=== PATIENT | female | born 1945 | race Caucasian/White ===

== ENCOUNTER 2018-06-12 17:43 | Emergency (ER) | payer MEDICARE ==
[2018-06-12] MEDS ORDERED: ATORVASTATIN CA40 MG PO (18:09)
[2018-06-12] MEDS ORDERED: LISINOPRIL5 MG PO (18:10)
[2018-06-12] MEDS ORDERED: FLUOXETINE HCL20 MG PO (18:10)
[2018-06-12] MEDS ORDERED: MONTELUKAST SOD10 MG PO (18:10)
[2018-06-12] MEDS ORDERED: CELECOXIB200 MG PO (18:11)
[2018-06-12] MEDS ORDERED: METFORMIN500 M2 PO (18:11)
[2018-06-12] MEDS ORDERED: METHOTREXATE2.5 MG PO (18:12)
[2018-06-12] MEDS ORDERED: TRAMADOL HCL50 MG PO (19:20)
[2018-06-12 19:25] VITALS: BP 130/77
[2018-06-12] MEDS ORDERED: FLEXERIL5 M1 PO (19:29)
== END 2018-06-12 19:25 | disposition home or self-care (01) ==
LOC: ED 17:43
DX: S70.01XA Contusion of right hip, initial encounter (principal); E11.9 Type 2 diabetes mellitus without complications; E78.5 Hyperlipidemia, unspecified; M06.9 Rheumatoid arthritis, unspecified; F17.200 Nicotine dependence, unspecified, uncomplicated; W18.30XA Fall on same level, unspecified, initial encounter

== ENCOUNTER 2019-05-18 | Day surgery (SDC) | payer MEDICARE ==
[~2019-05-18] MED LIST: ATORVASTATIN CA40 MG PO; BUSPIRONE5 MG PO; CELECOXIB200 MG PO; FLEXERIL5 M1 PO; FLUOXETINE HCL20 MG PO; FOLIC ACID1 M1 PO; LISINOPRIL5 MG PO; METFORMIN500 M2 PO; METHOTREXATE2.5 MG PO; MONTELUKAST SOD10 MG PO; TRAMADOL HCL50 MG PO
[2019-10-26] MEDS ORDERED: HYDROCO/APAP1 T13 PO (10:38)
[2019-10-26] MEDS ORDERED: BEET ROOT PO (10:39)
[2019-10-26] MEDS ORDERED: NIACIN PO (10:40)
[2019-10-26] MEDS ORDERED: VITAMIN B-12500 MCG PO (10:40)
[2019-10-26] MEDS ORDERED: ZYRTEC10 MG PO (10:40)
[2019-10-26] MEDS ORDERED: FLEXERIL5 MG PO (10:40)
== END 2019-05-18 09:25 | disposition home or self-care (01) ==
DX: M70.71 Other bursitis of hip, right hip (principal); M76.31 Iliotibial band syndrome, right leg

== ENCOUNTER 2019-09-06 | Emergency (ER) | payer MEDICARE ==
[2019-09-06 09:46] LABS: HEMATOCRIT 38.6 % (37.0-47.0); HEMOGLOBIN 12.6 g/dl (12.0-16.0); IMMATURE GRANULOCYTES 0.6 % (0.0-5.0); MEAN CORPUSCULAR HGB 32.3 pG CALC (26.0-32.0); MEAN CORPUSCULAR HGB CONC 32.6 g/dL CAL (32.0-36.0); NEUT# 6.11 thou/uL (2.00-7.15); RED BLOOD COUNT 3.9 mill/uL (4.20-5.60); RED CELL DISTRI WIDTH 15.6 % (11.5-15.5)
[2019-09-06 10:06] LABS: ALKALINE PHOSPHATASE 101 u/l (38-126); ANION GAP 16 (6-22 (CALC)); BILIRUBIN, TOTAL 0.6 mg/dL (0.0-1.4); BUN 15 mg/dL (8-23); BUN/CREATININE RATIO 12 (12-20 (CALC)); CARBON DIOXIDE 19 mmol/l (22-30); CHLORIDE 106 mmol/l (95-108); CREATININE 1.3 mg/dL (0.5-1.0); GFR 40 ML/MIN (>=60 (CALC)); GFR FOR AFR.AMER. 49 ML/MIN (>=60 (CALC)); SGOT/AST 56 u/l (9-36); SODIUM 138 mmol/l (137-146); TOTAL PROTEIN 6.6 g/dL (6.3-8.2)
[2019-09-06] MEDS ORDERED: PREDNISONE50 MG PO ×2 (10:23)
[2019-10-26] MEDS ORDERED: HYDROCO/APAP1 T13 PO (10:38)
[2019-10-26] MEDS ORDERED: BEET ROOT PO (10:39)
[2019-10-26] MEDS ORDERED: FLEXERIL5 MG PO (10:40)
[2019-10-26] MEDS ORDERED: ZYRTEC10 MG PO (10:40)
[2019-10-26] MEDS ORDERED: VITAMIN B-12500 MCG PO (10:40)
[2019-10-26] MEDS ORDERED: NIACIN PO (10:40)
== END 2019-09-06 11:04 | disposition home or self-care (01) ==
PROVIDERS: Family Medicine
DX: R06.02 Shortness of breath (principal); E11.9 Type 2 diabetes mellitus without complications; F17.200 Nicotine dependence, unspecified, uncomplicated; Z77.098 Contact with and (suspected) exposure to other hazardous, chiefly nonmedicinal, chemicals; Z79.84 Long term (current) use of oral hypoglycemic drugs

== ENCOUNTER 2019-11-02 06:23 | Day surgery (SDC) | payer MEDICARE ==
[~2019-11-02] VITALS: Ht 170.2 cm; Wt 74.8 kg
[~2019-11-02 06:23] MED LIST changes: +BEET ROOT PO; +FLEXERIL5 MG PO; +HYDROCO/APAP1 T13 PO; +NIACIN PO; +PREDNISONE50 MG PO; +VITAMIN B-12500 MCG PO; +ZYRTEC10 MG PO
[2019-11-02 08:17] VITALS: BP 142/65
[2019-11-02] MEDS ORDERED: HYDROCODONE/ACE1 TAB PO ×2 (08:44→08:45)
== END 2019-11-02 08:45 | disposition home or self-care (01) ==
LOC: ORM 06:23
PROVIDERS: ATTEND Anesthesiology Pain Medicine
DX: M70.71 Other bursitis of hip, right hip (principal); M76.31 Iliotibial band syndrome, right leg; Z01.84 Encounter for antibody response examination

== ENCOUNTER 2022-02-25 14:07 | Emergency (ER) | payer MEDICARE ==
[~2022-02-25] VITALS: Ht 170.2 cm; Wt 83.9 kg
[~2022-02-25 14:07] MED LIST changes: +HYDROCODONE/ACE1 TAB PO
[2022-02-25 16:02] VITALS: BP 157/79
[2022-02-25 16:17] LABS: HEMATOCRIT 43.9 % (37.0-47.0); HEMOGLOBIN 14.2 g/dl (12.0-16.0); IMMATURE GRANULOCYTES 0.2 % (0.0-5.0); MEAN CELL VOLUME 103.8 fL CALC (80.0-100.0); MEAN CORPUSCULAR HGB 33.6 pG CALC (26.0-32.0); MEAN CORPUSCULAR HGB CONC 32.3 g/dL CAL (32.0-36.0); NEUT# 7.92 thou/uL (2.00-7.15); RED BLOOD COUNT 4.23 mill/uL (4.20-5.60); RED CELL DISTRI WIDTH 15.5 % (11.5-15.5)
[2022-02-25 16:30] LABS: CREATININE 1.1 mg/dL (0.5-1.0); POTASSIUM 3.7 mmol/l (3.5-5.1); TOTAL PROTEIN 7.3 g/dL (6.3-8.2)
[2022-02-25 16:43] LABS: INTERNATIONAL NORMALIZED RATIO 1.1 RATIO (0.7-1.3); PROTHROMBIN TIME 10.6 SECONDS (9.0-12.5)
[2022-02-25] MEDS ORDERED: XARELTO STARTER1 TAB PO (17:20)
[2022-02-25 17:24] VITALS: BP 157/79
== END 2022-02-25 17:46 | disposition home or self-care (01) ==
LOC: ED 14:07
PROVIDERS: Nurse Practitioner
DX: I82.412 Acute embolism and thrombosis of left femoral vein (principal); E11.9 Type 2 diabetes mellitus without complications; M06.9 Rheumatoid arthritis, unspecified; E78.5 Hyperlipidemia, unspecified; J44.9 Chronic obstructive pulmonary disease, unspecified; F17.200 Nicotine dependence, unspecified, uncomplicated; Z79.84 Long term (current) use of oral hypoglycemic drugs

== ENCOUNTER 2022-05-20 14:28 | Emergency (ER) | payer MEDICARE ==
[2022-05-20] VITALS (9 sets, daily range): BP systolic 101–144; BP diastolic 55–77
[~2022-05-20] VITALS: Ht 170.2 cm; Wt 83.9 kg
[~2022-05-20 14:28] MED LIST changes: +XARELTO STARTER1 TAB PO
[2022-05-20 15:12] LABS: BASO% 0.5 % (0-3); EOS% 4.6 % (0-8); HEMATOCRIT 45.9 % (37.0-47.0); HEMOGLOBIN 14.9 g/dl (12.0-16.0); IMMATURE GRANULOCYTES 0.2 % (0.0-5.0); LYMPH% 26.6 % (15-41); MEAN CELL VOLUME 100.7 fL CALC (80.0-100.0); MEAN CORPUSCULAR HGB 32.7 pG CALC (26.0-32.0); MEAN CORPUSCULAR HGB CONC 32.5 g/dL CAL (32.0-36.0); MONO% 4.9 % (2-13); NEUT# 3.75 thou/uL (2.00-7.15); NEUT% 63.2 % (42-76); RED BLOOD COUNT 4.56 mill/uL (4.20-5.60); RED CELL DISTRI WIDTH 14.9 % (11.5-15.5)
[2022-05-20 15:56] LABS: ALBUMIN 4.2 g/dL (3.2-5.0); ALKALINE PHOSPHATASE 150 u/l (38-126); BUN 16 mg/dL (8-23); BUN/CREATININE RATIO 13 (12-20 (CALC)); CHLORIDE 104 mmol/l (95-108); CREATININE 1.2 mg/dL (0.5-1.0); GFR FOR AFR.AMER. 53 ML/MIN (>=60 (CALC)); GFR OTHER RACES 44 ML/MIN (>=60 (CALC)); SGOT/AST 126 u/l (9-36); SODIUM 139 mmol/l (137-146); TOTAL PROTEIN 7.7 g/dL (6.3-8.2)
[2022-05-20 16:00] LABS: ANION GAP 11 (6-22 (CALC)); BILIRUBIN, TOTAL 1.4 mg/dL (0.0-1.4); CARBON DIOXIDE 28 mmol/l (22-30)
[2022-05-20] MEDS ORDERED: PREDNISONE50 MG PO (16:39)
[2022-05-20] MEDS ORDERED: ZPAK PO (16:39)
[2022-05-20] MEDS ORDERED: ALBUTEROL SUL0.083 % IN (16:39)
[2022-05-20] MEDS ORDERED: NEBULIZER KIT/TUBING PO (16:39)
== END 2022-05-20 16:53 | disposition left against medical advice (07) ==
LOC: ED 14:28
PROVIDERS: Family Medicine
DX: J44.1 Chronic obstructive pulmonary disease with (acute) exacerbation (principal); E11.9 Type 2 diabetes mellitus without complications; M06.9 Rheumatoid arthritis, unspecified; E78.5 Hyperlipidemia, unspecified; F17.200 Nicotine dependence, unspecified, uncomplicated; Z53.29 Procedure and treatment not carried out because of patient's decision for other reasons; Z79.84 Long term (current) use of oral hypoglycemic drugs; Z20.822 Contact with and (suspected) exposure to COVID-19

== ENCOUNTER 2022-05-27 13:05 | Emergency (ER) | payer MEDICARE ==
[~2022-05-27] VITALS: Ht 170.2 cm; Wt 83.9 kg
[~2022-05-27 13:05] MED LIST changes: +ALBUTEROL SUL0.083 % IN; +NEBULIZER KIT/TUBING PO; +ZPAK PO
[2022-05-27] MEDS ORDERED: TRELEGY ELLIPTA1 AER IN (14:27)
[2022-05-27 14:42] LABS: BASO% 0.2 % (0-3); HEMATOCRIT 41.9 % (37.0-47.0); HEMOGLOBIN 13.7 g/dl (12.0-16.0); IMMATURE GRANULOCYTES 0.3 % (0.0-5.0); LYMPH% 15.2 % (15-41); MEAN CELL VOLUME 99.8 fL CALC (80.0-100.0); MEAN CORPUSCULAR HGB 32.6 pG CALC (26.0-32.0); MEAN CORPUSCULAR HGB CONC 32.7 g/dL CAL (32.0-36.0); MONO% 9.2 % (2-13); NEUT# 9.54 thou/uL (2.00-7.15); NEUT% 72.1 % (42-76); RED BLOOD COUNT 4.2 mill/uL (4.20-5.60); RED CELL DISTRI WIDTH 15.2 % (11.5-15.5)
[2022-05-27 15:00] LABS: ALBUMIN 3.6 g/dL (3.2-5.0); ALKALINE PHOSPHATASE 157 u/l (38-126); ANION GAP 11 (6-22 (CALC)); BUN 21 mg/dL (8-23); BUN/CREATININE RATIO 23 (12-20 (CALC)); CARBON DIOXIDE 26 mmol/l (22-30); CHLORIDE 106 mmol/l (95-108); CREATININE 0.9 mg/dL (0.5-1.0); GFR FOR AFR.AMER. > 60 ML/MIN (>=60 (CALC)); GFR OTHER RACES > 60 ML/MIN (>=60 (CALC)); POTASSIUM 3.2 mmol/l (3.5-5.1); SGOT/AST 121 u/l (9-36); SODIUM 139 mmol/l (137-146); TOTAL PROTEIN 6.8 g/dL (6.3-8.2)
[2022-05-27 15:02] LABS: BILIRUBIN, TOTAL 0.8 mg/dL (0.02-1.3)
[2022-05-27] MEDS ORDERED: ZOFRAN4 MG/TAB PO (17:27)
[2022-05-27] MEDS ORDERED: POTASSIUM CHLO20 ME1 PO (17:27)
[2022-05-27] MEDS ORDERED: NEXIUM40 M1 PO (17:27)
[2022-05-27] MEDS ORDERED: TRAMADOL HYDROC50 M1 PO (17:27)
[2022-05-27 17:49] VITALS: BP 147/77
== END 2022-05-27 17:46 | disposition home or self-care (01) ==
LOC: ED 13:05
PROVIDERS: Emergency Medicine
DX: K29.71 Gastritis, unspecified, with bleeding (principal); E11.9 Type 2 diabetes mellitus without complications; M06.9 Rheumatoid arthritis, unspecified; E78.5 Hyperlipidemia, unspecified; J44.9 Chronic obstructive pulmonary disease, unspecified; F17.200 Nicotine dependence, unspecified, uncomplicated; Z79.84 Long term (current) use of oral hypoglycemic drugs
CPT/HCPCS: S0164

== ENCOUNTER 2022-06-18 14:11 | Emergency (ER) | payer MEDICARE ==
[~2022-06-18] VITALS: Ht 170.2 cm; Wt 190.0 kg
[~2022-06-18 14:11] MED LIST changes: +NEXIUM40 M1 PO; +POTASSIUM CHLO20 ME1 PO; +TRAMADOL HYDROC50 M1 PO; +TRELEGY ELLIPTA1 AER IN; +ZOFRAN4 MG/TAB PO
[2022-06-18 15:02] VITALS: BP 93/58
[2022-06-18 15:23] VITALS: BP 108/44
[2022-06-18 16:15] LABS: BASO% 0.6 % (0-3); EOS% 1.6 % (0-8); HEMATOCRIT 39.1 % (37.0-47.0); HEMOGLOBIN 12.4 g/dl (12.0-16.0); IMMATURE GRANULOCYTES 0.1 % (0.0-5.0); LYMPH% 13.9 % (15-41); MEAN CELL VOLUME 101.6 fL CALC (80.0-100.0); MEAN CORPUSCULAR HGB 32.2 pG CALC (26.0-32.0); MEAN CORPUSCULAR HGB CONC 31.7 g/dL CAL (32.0-36.0); MONO% 1.3 % (2-13); NEUT# 7.34 thou/uL (2.00-7.15); NEUT% 82.5 % (42-76); RED BLOOD COUNT 3.85 mill/uL (4.20-5.60); RED CELL DISTRI WIDTH 15.9 % (11.5-15.5)
[2022-06-18 17:32] LABS: ALKALINE PHOSPHATASE 142 u/l (38-126); ANION GAP 8 (6-22 (CALC)); BILIRUBIN, TOTAL 0.7 mg/dL (0.02-1.3); BUN 19 mg/dL (8-23); BUN/CREATININE RATIO 19 (12-20 (CALC)); CARBON DIOXIDE 24 mmol/l (22-30); CHLORIDE 109 mmol/l (95-108); GFR FOR AFR.AMER. > 60 ML/MIN (>=60 (CALC)); GFR OTHER RACES 54 ML/MIN (>=60 (CALC)); LIPASE 75 u/l (23-300); POTASSIUM 3.9 mmol/l (3.5-5.1); SGOT/AST 109 u/l (9-36); SODIUM 137 mmol/l (137-146); TOTAL PROTEIN 5.8 g/dL (6.3-8.2)
[2022-06-18] MEDS ORDERED: PROTONIX40 M2 PO (18:50)
[2022-06-18 20:49] VITALS: BP 108/44
== END 2022-06-18 20:23 | disposition home or self-care (01) ==
LOC: ED 14:11
PROVIDERS: Family Medicine
DX: R10.13 Epigastric pain (principal); R10.11 Right upper quadrant pain; M06.9 Rheumatoid arthritis, unspecified; J44.9 Chronic obstructive pulmonary disease, unspecified; R73.03 Prediabetes; F17.200 Nicotine dependence, unspecified, uncomplicated; Z86.718 Personal history of other venous thrombosis and embolism
CPT/HCPCS: Q9967

== ENCOUNTER 2022-11-25 14:34 | Emergency (ER) | payer MEDICARE, MEDICAID ==
[2022-11-25] VITALS (14 sets, daily range): BP systolic 102–134; BP diastolic 58–73
[~2022-11-25] VITALS: Ht 170.2 cm; Wt 83.0 kg
[~2022-11-25 14:34] MED LIST changes: +PROTONIX40 M2 PO
[2022-11-25] MEDS ORDERED: FLEXERIL5 M1 PO (14:59)
[2022-11-25] MEDS ORDERED: ESOMEPRAZOLE MA40 MG (15:00)
[2022-11-25] MEDS ORDERED: ALBUTEROL SUL0.083 % IN (15:02)
[2022-11-25] MEDS ORDERED: ZOFRAN4 MG/TAB PO (15:02)
[2022-11-25] MEDS ORDERED: METHOTREXATE S2.5 MG PO (15:02)
[2022-11-25] MEDS ORDERED: VENTOLIN HFA108 MCG (15:05)
[2022-11-25] MEDS ORDERED: XARELTO20 MG PO (15:06)
[2022-11-25] MEDS ORDERED: ATIVAN0.5 MG PO (15:06)
[2022-11-25 15:09] LABS: BASO% 0.7 % (0-3); EOS% 0.6 % (0-8); HEMATOCRIT 41.5 % (37.0-47.0); HEMOGLOBIN 12.7 g/dl (12.0-16.0); IMMATURE GRANULOCYTES 0.3 % (0.0-5.0); LYMPH% 18.8 % (15-41); MEAN CELL VOLUME 107.2 fL CALC (80.0-100.0); MEAN CORPUSCULAR HGB 32.8 pG CALC (26.0-32.0); MEAN CORPUSCULAR HGB CONC 30.6 g/dL CAL (32.0-36.0); MONO% 8.8 % (2-13); NEUT# 4.9 thou/uL (2.00-7.15); NEUT% 70.8 % (42-76); RED BLOOD COUNT 3.87 mill/uL (4.20-5.60); RED CELL DISTRI WIDTH 17.4 % (11.5-15.5)
[2022-11-25 15:24] LABS: BILIRUBIN, TOTAL 0.9 mg/dL (0.02-1.3); CREATININE 1.4 mg/dL (0.5-1.0); POTASSIUM 3.2 mmol/l (3.5-5.1); TOTAL PROTEIN 6.7 g/dL (6.3-8.2)
[2022-11-25 16:57] LABS: URINE BILIRUBIN - DIPSTICK NEGATIVE (NEGATIVE); URINE COLOR YELLOW; URINE GLUCOSE - DIPSTICK NEGATIVE (NEGATIVE)
[2022-11-25 16:58] LABS: URINE BLOOD DIPSTICK MODERATE (NEGATIVE); URINE KETONE Negative (NEGATIVE); URINE LEUK ESTERASE SMALL (NEGATIVE); URINE NITRITE - DIPSTICK NEGATIVE (Negative); URINE PH 6.5 (4.5-8.0); URINE PROTEIN - DIPSTICK 30 mg/dL (NEG-TRACE); URINE SPECIFIC GRAVITY 1.015; URINE UROBILINOGEN - DIPSTICK 0.2 E.U./dL (0.2)
[2022-11-25 17:06] LABS: URINE SQUAMOUS EPITHELIAL CELL FEW EPI/hpf (0-FEW)
[2022-11-25] MEDS ORDERED: KEFLEX500 MG PO (18:36)
== END 2022-11-25 18:53 | disposition left against medical advice (07) ==
LOC: ED 14:34
PROVIDERS: Nurse Practitioner
PROC: 0T9B70Z Drainage of Bladder with Drainage Device, Via Natural or Artificial Opening (ICD-10-PCS; principal; 2022-11-25)
DX: N39.0 Urinary tract infection, site not specified (principal); B96.1 Klebsiella pneumoniae [K. pneumoniae] as the cause of diseases classified elsewhere; N13.30 Unspecified hydronephrosis; R33.9 Retention of urine, unspecified; K74.60 Unspecified cirrhosis of liver; R18.8 Other ascites; E87.6 Hypokalemia; E87.20 Acidosis, unspecified; M06.9 Rheumatoid arthritis, unspecified; J44.9 Chronic obstructive pulmonary disease, unspecified; R73.03 Prediabetes; F17.200 Nicotine dependence, unspecified, uncomplicated; Z86.718 Personal history of other venous thrombosis and embolism; Z53.29 Procedure and treatment not carried out because of patient's decision for other reasons
CPT/HCPCS: Q9967; S0164